=== PATIENT | female | born 1990 | race Two or more races ===

== ENCOUNTER 2025-04-14 22:01 | Observation (INO) | payer MEDICAID ==
[~2025-04-14] VITALS: Ht 160 cm; Wt 93.9 kg
[2025-04-14] MEDS ORDERED: ACETAMINOPHEN 325 MG TAB PO ONE (22:30)
[2025-04-14 22:57] LABS: Hematocrit 34.4 % (36.0-46.0); Hemoglobin 11.3 g/dL (12.2-16.2); Mean Corpuscular Hemoglobin 27.7 pg (28.0-32.0); Mean Corpuscular Volume 84.6 fL (80.0-100.0); Nucleated Red Blood Cells % 0.1 %
[2025-04-14 23:02] LABS: Urine Protein, UAD Negative (Negative)
[2025-04-14 23:05] LABS: Protein, Urine 17.1 mg/dL (1-14)
[2025-04-14 23:11] LABS: Alanine Aminotransferase 10 U/L (7-40); Albumin 4.0 g/dL (3.2-4.8); Anion Gap 11 (5-15); BUN/Creatinine Ratio 16.9 (10.0-20.0); Bilirubin, Total 0.5 mg/dL (0.2-1.0); Blood Urea Nitrogen 10 mg/dL (9-23); Calcium 9.7 mg/dL (8.7-10.4); Carbon Dioxide 22 mmol/L (20-31); Chloride 106 mmol/L (98-107); Glucose 102 mg/dL (74-106); Potassium 4.2 mmol/L (3.5-5.1); Sodium 139 mmol/L (136-145); Total Protein 7.2 g/dL (5.7-8.2); Uric Acid 3.3 mg/dL (3.1-7.8)
[2025-04-14 23:16] LABS: Alkaline Phosphatase 147 U/L (46-116)
--- NOTE | 2025-04-14 23:23 | DVH ---
BIOPHYSICAL PROFILE HISTORY: HTN TECHNIQUE: Multiple transabdominal real-time grayscale sonographic images through the gravid uterus of the fetus with duplex Doppler color flow and M-mode spectral analysis FINDINGS: BIOPHYSICAL PROFILE: breathing score: 2 movement score: 2 tone score: 2 Quantitative AMISH score: 2 (AMISH: 10.5 cm; MVP: 4.4 cm) Total score: 8/8 Single live fetus in breech presentation. heart rate beats per minute. Grade II anterior placenta without previa or abruption Single live fetus at 34 weeks 2 days Biophysical profile score 8/8 corresponding to an ADONIS of 05/24/2025 IMPRESSION: 1. Biophysical profile score: 8/
--- NOTE | 2025-04-14 23:51 | DVHDS2 ---
Physician Discharge Progress N Final Diagnosis: Tooth pain Ruled out preeclampsia Operations or Procedures: Operations or Procedures S: 34yo IUP@34+wks presents to OB triage with c/o headache that is 10/10 pain. She also has tooth pain since she is pending [facility] approval for a root canal. Pt reports taking Tylenol 500mg every 6 hrs and it is not helping the pain, last she took it was 2100. +FM, denies UCs/LOF/VB/vision changes/RUQ pain. PNC at [facility] in [place], and sees MFM Dr. Clemons for GDM, A1. PMH: denies PSH: denies FMH: T2DM O: VSS, normotensive, see CPN NST reactive Heart sounds WNL Lung sounds clear bilaterally BLE: 1+ non-pitting edema noted Laboratory Tests Test 04/14/25 22:32 04/14/25 22:33 04/14/25 23:23 Range/Units Urine Color Light-yellow Yellow Urine Clarity Clear Clear Urine pH 6.5 5.0-9.0 Urine Specific [place] 1.014 1.001-1.035 Urine Protein Negative Negative Urine Ketones Negative Negative Urine Blood Negative Negative /uL Urine Nitrite Negative Negative Urine Bilirubin Negative Negative Urine Urobilinogen Normal Negative mg/dL Urine Leukocyte Esterase Negative Negative /uL Urine RBC None seen 0 - 4 /hpf Urine Microscopic WBC 2 0-5 /HPF Urine Squamous Epithelial Cells Few <5 /hpf Urine Bacteria None seen None Seen /hpf Urine Creatinine 85.12 30.0-125.0 mg/dL Urine Protein/Creatinine Ratio 0.20 Urine Glucose Normal Normal mg/dL Urine Total Protein 17.1 H 1-14 mg/dL White Blood Count 7.6 4.4-10.8 10^3/uL Red Blood Count 4.07 4.0-5.20 10^6/uL Hemoglobin 11.3 L 12.2-16.2 g/dL Hematocrit 34.4 L 36.0-46.0 % Mean Corpuscular Volume 84.6 80.0-100.0 fL Mean Corpuscular Hemoglobin 27.7 L 28.0-32.0 pg Mean Corpuscular Hemoglobin Concent 32.8 32.0-36.0 g/dL Red Cell Distribution Width 13.0 11.8-14.3 % Platelet Count 346 140-450 10^3/uL Mean Platelet Volume 7.8 6.9-10.8 fL Neutrophils (%) (Auto) 68.7 37.0-80.0 % Lymphocytes (%) (Auto) 24.4 10.0-50.0 % Monocytes (%) (Auto) 6.1 0.0-12.0 % Eosinophils (%) (Auto) 0.6 0.0-7.0 % Basophils (%) (Auto) 0.2 0.0-2.0 % Neutrophils # (Auto) 5.2 1.6-8.6 10 ^3/uL Lymphocytes # (Auto) 1.8 0.4-5.4 10 ^3/uL Monocytes # (Auto) 0.5 0-1.3 10 ^3/uL Eosinophils # (Auto) 0 0-0.8 10 ^3/uL Basophils # (Auto) 0 0-0.2 10 ^3/uL Nucleated Red Blood Cells 0.1 % Sodium Level 139 136-145 mmol/L Potassium Level 4.2 3.5-5.1 mmol/L Chloride Level 106 98-107 mmol/L Carbon Dioxide Level 22 20-31 mmol/L Anion Gap 11 5-15 Blood Urea Nitrogen 10 9-23 mg/dL Creatinine 0.59 0.550-1.02 mg/dL Glomerular Filtration Rate Calc 122 >90 mL/min BUN/Creatinine Ratio 16.9 10.0-20.0 Serum Glucose 102 74-106 mg/dL Uric Acid 3.3 3.1-7.8 mg/dL Calcium Level 9.7 8.7-10.4 mg/dL Total Bilirubin 0.5 0.2-1.0 mg/dL Aspartate Amino Transferase (AST) 14 13-40 U/L Alanine Aminotransferase (ALT) 10 7-40 U/L Alkaline Phosphatase 147 H 46-116 U/L Lactate Dehydrogenase 177 120-246 U/L Total Protein 7.2 5.7-8.2 g/dL Albumin 4.0 3.2-4.8 g/dL POC Glucose 100 70-106 mg/dl A: 34yo IUP@34+wks Tooth pain Ruled out preeclampsia P: D/C home Pt to f/u with primary OB clinic tomorrow as scheduled for visit and inform them of today's visit findings. Recommended f/u with dentist and [facility] for tooth pain. Pt advised to take Tylenol 1000mg q6hrs at a time to be more effective for tooth pain mgmt Recommended drinking sugar free electrolytes daily and wearing compression socks for lower ext edema Pt advised to get a copy of records with her at all times since she is unsure where she will give . FKC/PTL/preE precautions reviewed. Dr. Chen consulted, agrees with POC. Other Interventions Other Interventions [place] [id number] Ph: [phone] DIAGNOSTIC IMAGING Diagnostic Imaging Report : [id number] Signed PATIENT: MAVIS WOO ACCT: [id number] UNIT: [id number] : 1990 LOC: [facility] ROOM / BED: TRIAGE2 / A AGE / SEX: 34 / F ADM STATUS: ADM IN SERVICE 22 ORDERING PHYSICIAN: JULIO ANNE CNM PROCEDURE(s): BPP - BIOPHYSICAL PROFILE REASON: HTN ORDER NUMBER(s): [id number], ACCESSION NUMBER(s): [id number] BIOPHYSICAL PROFILE HISTORY: HTN TECHNIQUE: Multiple transabdominal real-time grayscale sonographic images through the gravid uterus of the fetus with duplex Doppler color flow and M-mode spectral analysis FINDINGS: BIOPHYSICAL PROFILE: breathing score: 2 movement score: 2 tone score: 2 Quantitative AMISH score: 2 (AMISH: 10.5 cm; MVP: 4.4 cm) Total score: 8/8 Single live fetus in breech presentation. heart rate beats per minute. Grade II anterior placenta without previa or abruption Single live fetus at 34 weeks 2 days Biophysical profile score 8/8 corresponding to an ADONIS of 05/24/2025 IMPRESSION: 1. Biophysical profile score: 8/ ATED BY: ISSA LOW MD DICTATED DATE/TIME: 04/14/252319 SIGNED BY: ISSA LOW MD SIGNED DATE/TIME: 04/14/252319 CC: Condition on Discharge: Stable Disposition: Home Discharge Instructions: Diet: Consistent carbohydrate Activity: No Restrictions, As Tolerated Medications: see med list Follow Up Care: Specialist: f/u with primary OB Discharge Statement: "Patient was advised to return to the ER or call 911 if any headaches, dizziness, shortness of breath, chest pain, abdominal pain, bleeding, fevers, or worsening of medical condition. Patient was counseled about treatment plan, medications, possible side effects, patientverbalized understanding. All questions were answered to the best of my ability. This discharge took greater then 30 minutes in planning, reviewing documentation, counseling the patient, and discussing with other team members." Visit Coding OBGYN Date of Service: Apr 14, 2025 Billing Provider: JULIO ANNE CNM [facility] Common Visit Codes: 14216-XRBADMY OBS CARE (HIGH) [facility] Procedure Codes: 78666-91- NON-STRESS TEST JULIO ANNE CNM Apr 14, 2025 23:51
== END 2025-04-15 00:21 | disposition home or self-care (01) ==
LOC: LDRP 22:01
PROVIDERS: ADMIT Obstetrics & Gynecology; ATTEND Obstetrics & Gynecology
DX: O24.419 Gestational diabetes mellitus in pregnancy, unspecified control (principal); O26.893 Other specified pregnancy related conditions, third trimester; K08.89 Other specified disorders of teeth and supporting structures; R51.9 Headache, unspecified; O13.3 Gestational [pregnancy-induced] hypertension without significant proteinuria, third trimester; Z3A.34 34 weeks gestation of pregnancy; Z98.890 Other specified postprocedural states
CPT/HCPCS: 36415; 59025; 76819; 80053; 81001; 81002; 82570; 82948; 82962; 83615; 84156; 84550; 85025; 94760; A4649; G0378